=== PATIENT | female | born 1980 | race Caucasian/White ===

== ENCOUNTER 2018-07-16 09:13 | Outpatient (REF) | payer MEDICAID, SELFPAY ==
[2018-07-16 14:34] LABS: Abs Immature Grans 0.03 k/cumm (0.0-0.09); Absolute Basophil Count 0.03 k/cumm (0.0-0.2); Absolute Eosinophil Count 0.05 k/cumm (0.0-0.7); Absolute Lymphocyte Count 2.93 k/cumm (1.2-3.4); Absolute Monocyte Count 0.51 k/cumm (0.11-0.7); Absolute Neutrophil Count 7.05 k/cumm (1.2-6.7); Basophils % 0.3; Eosinophils % 0.5; HCT 43.2 % (36.0-46.0); HGB 14.3 g/dL (12.0-15.5); Immature Grans % 0.3; Lithium 0.25 mmol/L (0.60-1.20); Lymphocytes % 27.6; Mean Corp. HGB Concentration 33.1 g/dL (32.0-36.0); Mean Corpuscular Hemoglobin 29.2 pg (27.0-33.0); Mean Corpuscular Volume 88.2 fL (80-95); Mean Platelet Volume 11.3 fL (8.0-11.0); Monocytes % 4.8; Neutrophils % 66.5; Platelet Count 286 x1000/uL (130-400); RBC Distribution Width 12.7 % (11.7-14.6)
[2018-07-16 14:44] LABS: ALT 30 U/L (12-78); AST 15 U/L (15-37); Albumin 3.9 g/dL (3.4-5.0); Alkaline Phosphatase 59 U/L (46-116); Anion Gap 11.1 mmol/L (3-11); BUN 17 mg/dL (7-18); Bilirubin, Total 0.3 mg/dL (0.2-1.0); CO2 26.9 mmol/L (21.0-32.0); CREATININE 0.92 mg/dL (0.55-1.02); Calcium 9.7 mg/dL (8.5-10.1); Chloride 103 mmol/L (98-107); Glucose 87 mg/dL (70-100); Potassium 4.7 mmol/L (3.5-5.1); Sodium 141 mmol/L (136-145)
== END 2018-07-16 09:33 ==
LOC: NCHCN 09:13
PROVIDERS: Visit Provider Nurse Practitioner
DX: Z51.81 Encounter for therapeutic drug level monitoring (principal); Z79.899 Other long term (current) drug therapy; F31.81 Bipolar II disorder
CPT/HCPCS: 80053; 80178; 85025

== ENCOUNTER 2019-01-28 09:45 | Outpatient (REF) | payer MEDICAID, SELFPAY ==
[2019-01-28 14:33] LABS: Lithium < 0.20 mmol/L (0.60-1.20)
== END 2019-01-28 10:05 ==
LOC: NCHCN 09:45
PROVIDERS: PCP Nurse Practitioner Family; Visit Provider Nurse Practitioner Family
DX: F31.81 Bipolar II disorder (principal); Z51.81 Encounter for therapeutic drug level monitoring
CPT/HCPCS: 80178

== ENCOUNTER 2021-03-23 09:24 | Outpatient (REF) | payer MEDICAID, SELFPAY ==
[2021-03-23 14:57] LABS: Iron 76 ug/dL (50-170); Total Iron Binding Capacity 363 ug/dL (250-450); Transferrin Sat 21 % (15-50)
[2021-03-23 15:09] LABS: ALT 31 U/L (14-59); AST 18 U/L (15-37); Anion Gap 12.2 mmol/L (3-11); BUN 13 mg/dL (7-18); CO2 22.8 mmol/L (21.0-32.0); CREATININE 1.1 mg/dL (0.55-1.02); Calcium 8.9 mg/dL (8.5-10.1); Calculated LDL 137 mg/dL (<100); Chloride 107 mmol/L (98-107); Cholesterol 230 mg/dL (<200); Estimated GFR 54.74 (mL/min/1.73m2); Glucose 88 mg/dL (74-106); HDL Cholesterol 50 mg/dL (40-60); Potassium 4.4 mmol/L (3.5-5.1); Sodium 142 mmol/L (136-145); Triglyceride 219 mg/dL (<150)
== END 2021-03-23 09:25 | disposition home or self-care (01) ==
LOC: NCHCN 09:24
PROVIDERS: PCP Nurse Practitioner Family; Visit Provider Nurse Practitioner Family
DX: E78.5 Hyperlipidemia, unspecified (principal); G43.709 Chronic migraine without aura, not intractable, without status migrainosus; Z79.899 Other long term (current) drug therapy; R79.89 Other specified abnormal findings of blood chemistry
CPT/HCPCS: 80048; 80061; 83540; 83550; 84450; 84460

== ENCOUNTER 2022-11-10 13:05 | Outpatient (REF) | payer MEDICAID, SELFPAY ==
[2022-11-10 14:50] LABS: HCT 37.7 % (36.0-46.0); MCH 27.2 pg (27.0-33.0); MCHC 31.8 % (32.0-36.0); MCV 86 fL (80-95); Platelet Count 337 10^3/uL (130-400); RBC 4.41 10^6/uL (3.93-5.22); RDW 12.9 % (11.7-14.6); RDW-SD 39.8 fL; WBC 10.84 10^3/uL (4.4-10.8)
[2022-11-10 15:05] LABS: ALT 35 U/L (14-59); AST 24 U/L (15-37); Albumin 3.6 g/dL (3.4-5.0); Alkaline Phosphatase 70 U/L (46-116); Anion Gap 11.7 mmol/L (3-11); BUN 13 mg/dL (7-18); Bilirubin, Total 0.2 mg/dL (0.2-1.0); CO2 23.3 mmol/L (21.0-32.0); Calcium 9.4 mg/dL (8.5-10.1); Calculated LDL 154 mg/dL (<100); Chloride 104 mmol/L (98-107); Cholesterol 246 mg/dL (<200); Estimated GFR 72.13 (mL/min/1.73m2); Glucose 93 mg/dL (74-106); HDL Cholesterol 51 mg/dL (40-60); Potassium 4.1 mmol/L (3.5-5.1); Sodium 139 mmol/L (136-145); Total Protein 7.3 g/dL (6.4-8.2); Triglyceride 205 mg/dL (<150)
== END 2022-11-10 13:06 | disposition home or self-care (01) ==
LOC: NCHCN 13:05
PROVIDERS: PCP Nurse Practitioner Family; Visit Provider Nurse Practitioner Family
DX: Z51.81 Encounter for therapeutic drug level monitoring (principal)
CPT/HCPCS: 80053; 80061; 85027

== ENCOUNTER 2023-12-20 14:38 | Outpatient (REF) | payer MEDICAID, SELFPAY ==
[2023-12-20 21:15] LABS: HCT 37.7 % (36.0-46.0); MCH 27.4 pg (27.0-33.0); MCHC 31.8 % (32.0-36.0); MCV 86 fL (80-95); MPV 10.6 fL (8.0-11.0); Platelet Count 341 10^3/uL (130-400); RBC 4.38 10^6/uL (3.93-5.22); RDW 13.1 % (11.7-14.6); RDW-SD 40.7 fL
[2023-12-20 21:29] LABS: Hemoglobin A1C 5.6 % (<5.7)
[2023-12-20 21:35] LABS: ALT 28 U/L (14-59); AST 14 U/L (15-37); Albumin 3.6 g/dL (3.4-5.0); Alkaline Phosphatase 83 U/L (46-116); BUN 13 mg/dL (7-18); Bilirubin, Total 0.3 mg/dL (0.2-1.0); Calcium 9.1 mg/dL (8.5-10.1); Calculated LDL 138 mg/dL (<100); Chloride 105 mmol/L (98-107); Cholesterol 219 mg/dL (<200); Estimated GFR 71.69 (mL/min/1.73m2); Glucose 84 mg/dL (74-106); HDL Cholesterol 50 mg/dL (40-60); Potassium 4.4 mmol/L (3.5-5.1); Sodium 142 mmol/L (136-145); TSH 0.97 uIU/Ml (0.36-3.74); Total Protein 7.1 g/dL (6.4-8.2); Triglyceride 156 mg/dL (<150)
== END 2023-12-20 14:39 | disposition home or self-care (01) ==
LOC: NCHCN 14:38
PROVIDERS: PCP Nurse Practitioner Family; Visit Provider Nurse Practitioner Family
DX: Z51.81 Encounter for therapeutic drug level monitoring (principal)
CPT/HCPCS: 80053; 80061; 85027; 83036; 84443

== ENCOUNTER 2024-01-24 13:33 | Outpatient (REF) | payer MEDICAID, SELFPAY ==
[2024-01-25 19:37] LABS: COMMENT (LAB VIEW ONLY) 71.23 mg/dL; Microalb ug/mg Crea 9.3 ug/mg Cr
== END 2024-01-24 13:34 | disposition home or self-care (01) ==
LOC: NCHCN 13:33
PROVIDERS: PCP Nurse Practitioner Family; Visit Provider Nurse Practitioner Family
DX: R60.0 Localized edema (principal)
CPT/HCPCS: 82043; 82570

== ENCOUNTER 2024-07-25 11:53 | Outpatient (REF) | payer MEDICAID, SELFPAY ==
[2024-07-25 15:28] LABS: Vitamin B12 424 pg/mL (193-986)
== END 2024-07-25 11:54 | disposition home or self-care (01) ==
LOC: NCHCN 11:53
PROVIDERS: PCP Nurse Practitioner Family; Visit Provider Nurse Practitioner Family
DX: L08.89 Other specified local infections of the skin and subcutaneous tissue (principal); G62.9 Polyneuropathy, unspecified
CPT/HCPCS: 86812; 82607

== ENCOUNTER 2024-07-30 21:46 | Outpatient (REF) | payer MEDICAID, SELFPAY ==
[2024-08-07 17:53] LABS: HLA-B27 Result Negative
== END 2024-07-30 21:47 | disposition home or self-care (01) ==
LOC: NCHCN 21:46
PROVIDERS: PCP Nurse Practitioner Family; Visit Provider Nurse Practitioner Family
DX: L08.89 Other specified local infections of the skin and subcutaneous tissue (principal)
CPT/HCPCS: 86812

== ENCOUNTER 2024-08-05 01:43 | Outpatient (CLI) | payer MEDICAID, SELFPAY ==
--- NOTE | 2024-08-05 | DI.MRI_ITS ---
Exam(s) MR BRAIN WO EXAM: MR BRAIN WO CLINICAL HISTORY: Migraine, unspecified, not intractable, wo status migrainosus, G43.909 TECHNIQUE: Multiplanar multisequence MRI of the brain was performed. COMPARISON: No exams were available for comparison FINDINGS: VENTRICLES AND EXTRA AXIAL SPACES: Normal in size and morphology for the patient's age. MIDLINE SHIFT: None. CEREBRAL PARENCHYMA: No focus of restricted diffusion to suggest acute infarct. No space-occupying le cece identified. HEMORRHAGE: None. BRAINSTEM/CEREBELLUM: Normal. CALVARIUM: Normal. VISUALIZED PARANASAL SINUSES/MASTOIDS:Clear. HOH OF CUBA: Normal flow void. PITUITARY GLAND: There is a partially empty sella. OTHER FINDINGS: None. IMPRESSION: Unremarkable MRI of the brain. DATA REPOSITORY:
== END 2024-08-05 02:03 ==
LOC: DI 01:43
PROVIDERS: PCP Nurse Practitioner Family; Visit Provider Nurse Practitioner Family
DX: G43.909 Migraine, unspecified, not intractable, without status migrainosus (principal)
CPT/HCPCS: 70551

== ENCOUNTER 2024-11-21 01:20 | Outpatient (CLI) | payer MEDICAID, SELFPAY | END 2024-11-21 01:21 | disposition home or self-care (01) | PROVIDERS: PCP Nurse Practitioner Family; Visit Provider Nurse Practitioner Family | DX: R53.83 Other fatigue (principal) | CPT/HCPCS: 36415; 82533 ==

== ENCOUNTER 2025-01-09 15:22 | Outpatient (REF) | payer MEDICAID, SELFPAY ==
[2025-01-09 15:48] LABS: HCT 39.2 % (36.0-46.0); HGB 12.3 g/dL (11.2-15.7); MCH 25.8 pg (27.0-33.0); MCHC 31.4 % (32.0-36.0); MCV 82 fL (80-95); MPV 10.9 fL (8.0-11.0); Platelet Count 329 10^3/uL (130-400); RBC 4.77 10^6/uL (3.93-5.22); RDW 13.7 % (11.7-14.6); RDW-SD 40.8 fL; WBC 8.26 10^3/uL (4.4-10.8)
[2025-01-09 16:27] LABS: Iron 46 ug/dL (50-170); Total Iron Binding Capacity 347 ug/dL (250-450); Transferrin Sat 13 % (15-50)
[2025-01-09 16:40] LABS: ALT 42 U/L (14-59); AST 20 U/L (15-37); Albumin 3.8 g/dL (3.4-5.0); Alkaline Phosphatase 124 U/L (46-116); Anion Gap 10.5 mmol/L (3-11); BUN 15 mg/dL (7-18); Bilirubin, Total 0.3 mg/dL (0.2-1.0); CO2 26.5 mmol/L (21.0-32.0); Calculated LDL 172 mg/dL (<100); Chloride 107 mmol/L (98-107); Cholesterol 251 mg/dL (<200); Estimated GFR 71.24 (mL/min/1.73m2); Ferritin 30 ng/mL (8-252); Glucose 98 mg/dL (74-106); HDL Cholesterol 56 mg/dL (>or=50); Potassium 4.3 mmol/L (3.5-5.1); Sodium 144 mmol/L (136-145); TSH (W/Ref FT4) 1.63 uIU/mL (0.36-3.74); Total Protein 7.1 g/dL (6.4-8.2); Triglyceride 116 mg/dL (<150)
== END 2025-01-09 15:23 | disposition home or self-care (01) ==
LOC: NCHCN 15:22
PROVIDERS: PCP Nurse Practitioner Family; Visit Provider Nurse Practitioner Family
DX: R53.83 Other fatigue (principal); E78.5 Hyperlipidemia, unspecified
CPT/HCPCS: 80053; 80061; 85027; 82728; 83540; 83550; 84443

== ENCOUNTER 2025-01-13 01:03 | Outpatient (CLI) | payer MEDICAID, SELFPAY ==
--- NOTE | 2025-01-13 | DI.RAD_ITS ---
Exam(s) XR HAND RT COMPLETE XR HAND LT COMPLETE EXAM: XR HAND LT COMPLETE CLINICAL HISTORY: BILAT HAND PAIN,M79.643. TECHNIQUE: 2D digital imaging was performed. Three views of both hands. COMPARISON: CR XR HAND RT COMPLETE from 01/13/2025 FINDINGS: BONES: No acute fracture is present. No bony destructive lesion is seen. JOINTS: No dislocation present. There are no significant degenerative changes. SOFT TISSUE: Normal. IMPRESSION: Unremarkable radiographs of both hands. DATA REPOSITORY: RADIATION DOSE DELIVERED:
== END 2025-01-13 01:23 ==
LOC: DI 01:04
PROVIDERS: PCP Nurse Practitioner Family; Visit Provider Nurse Practitioner Family
DX: M79.641 Pain in right hand (principal); M79.642 Pain in left hand
CPT/HCPCS: 73130

== ENCOUNTER 2025-02-04 07:14 | Outpatient (CLI) | payer MEDICAID, SELFPAY ==
--- NOTE | 2025-02-04 08:54 | W.CARDEVENT ---
Date of service: 02/04/25 Time of Service: 08:54 Cardiac Event Recorder Referring Provider:: Estefania Ignacio Indications:: Palpitations Cardiac Event Note: This is a cardiac event monitor. Patient was monitored for 13 days and 6 hours. Predominant rhythm was sinus with an average heart rate of 99. Minimum was 68, maximum 133. There was 1 premature ventricular contraction. A total of 91 premature atrial contractions were recorded. There was no atrial fibrillation, no high-grade AV block, no pauses greater than 3 seconds. Patient's symptoms correlated to sinus tachycardia rates between 105 and 120
== END 2025-02-04 07:15 | disposition home or self-care (01) ==
LOC: CARDOPNVT 07:14
PROVIDERS: PCP Nurse Practitioner Family; Visit Provider Internal Medicine Cardiovascular Disease
DX: I49.1 Atrial premature depolarization
CPT/HCPCS: 93248

== ENCOUNTER 2025-02-25 01:41 | Outpatient (CLI) | payer MEDICAID, SELFPAY ==
--- NOTE | 2025-02-25 11:09 | DI.RAD_ITS ---
Exam(s) XR KNEE LT 3V AP,LAT,CONNER EXAM: XR KNEE LT 3V AP,LAT,CONNER CLINICAL HISTORY: LT KNEE PAIN, ? FRACTURE/CANCER/ASSESS FOR OA, RECURRENCE. TECHNIQUE: 2D digital imaging was performed. COMPARISON: No exams were available for comparison FINDINGS: 3 views No evidence of fracture. There may be a small joint effusion. No joint space narrowing nor osteophy jeni. No osteochondral defects. Bone density normal. No osseous lesions. There there is to be late ral displacement of the patella. IMPRESSION: There appears to be an element of lateral patellar displacement. No obvious degenerative changes nor osseous lesions in the knee. DATA REPOSITORY: RADIATION DOSE DELIVERED:
--- NOTE | 2025-02-25 11:09 | DI.RAD_ITS ---
Exam(s) XR KNEE RT 3V AP,LAT,CONNER EXAM: XR KNEE RT 3V AP,LAT,CONNER CLINICAL HISTORY: RT KNEE PAIN, ? FRACTURE/CANCER/ASSESS, RECURRENCE. TECHNIQUE: 2D digital imaging was performed. COMPARISON: CR XR KNEE LT 3V AP,LAT,CONNER from 02/25/2025 FINDINGS: 3 views No evidence of acute fracture. No obvious joint effusion. There is mild-moderate narrowing of the m edial compartment. Lateral compartment appears unremarkable. No patellar displacement. Bone densit y normal. No significant osseous lesions. IMPRESSION: There is some degenerative narrowing of the medial compartment of the right knee. DATA REPOSITORY: RADIATION DOSE DELIVERED:
== END 2025-02-25 02:01 ==
LOC: DI 01:41
PROVIDERS: PCP Nurse Practitioner Family; Visit Provider Internal Medicine Rheumatology
DX: M17.11 Unilateral primary osteoarthritis, right knee (principal)
CPT/HCPCS: 73562

== ENCOUNTER 2025-02-26 14:35 | Outpatient (REF) | payer MEDICAID, SELFPAY ==
[2025-02-26 15:30] LABS: Vitamin D 25 Total 25 ng/mL (30-100)
[2025-02-27 11:39] LABS: IgA 67 mg/dL (85-499); Interpretation (See Note); Tissue Transglutaminase IgA <4.0 CU (<20.0)
== END 2025-02-26 14:36 | disposition home or self-care (01) ==
LOC: NCHCN 14:35
PROVIDERS: PCP Nurse Practitioner Family; Visit Provider Nurse Practitioner Family
DX: E61.1 Iron deficiency (principal); E55.9 Vitamin D deficiency, unspecified
CPT/HCPCS: 82306; 82784; 83516

== ENCOUNTER 2025-07-10 14:39 | Outpatient (REF) | payer MEDICAID, SELFPAY ==
[2025-07-10 15:30] LABS: HCT 39.0 % (36.0-46.0); HGB 12.4 g/dL (11.2-15.7); MCH 26.7 pg (27.0-33.0); MCHC 31.8 % (32.0-36.0); MCV 84 fL (80-95); MPV 11.3 fL (8.0-11.0); Platelet Count 264 10^3/uL (130-400); RBC 4.64 10^6/uL (3.93-5.22); RDW 13.0 % (11.7-14.6); RDW-SD 39.2 fL; WBC 9.52 10^3/uL (4.4-10.8)
[2025-07-10 16:09] LABS: Alkaline Phosphatase 111 U/L (46-116); Ferritin 44 ng/mL (8-252)
[2025-07-10 17:23] LABS: Iron 43 ug/dL (50-170); Total Iron Binding Capacity 311 ug/dL (250-450)
== END 2025-07-10 14:40 | disposition home or self-care (01) ==
LOC: NCHCN 14:39
PROVIDERS: PCP Nurse Practitioner Family; Visit Provider Nurse Practitioner Family
DX: E61.1 Iron deficiency (principal); R74.8 Abnormal levels of other serum enzymes
CPT/HCPCS: 85027; 82728; 83540; 83550; 84075

== ENCOUNTER 2025-08-01 06:08 | Day surgery (SDC) | payer MEDICAID, SELFPAY ==
[2025-08-01 06:35] VITALS: BP 151/84; PULSE 117; RESP 20; TEMP 36.7; O2SAT 97
[2025-08-01] MEDS: Lactated Ringers 1,000 ML 80 ML IV (06:57)
--- NOTE | 2025-08-01 07:11 | W.ANESPRE ---
General Info Date of Service Date Performed: 08/01/25 Height: 5 ft 2 in Weight: 110.6 kg Body Mass Index (BMI): 44.6 Surgical Procedure: Operation Date: 08/01/25 07:35 Proposed Procedure Side Surgeon p Jarrod Segundo MD Meds Allergies and Home Medications Allergies Allergy/AdvReac Type Severity Reaction Status Date / Time oxcarbazepine (From Allergy Unknown Skin Rash Verified 08/01/25 06:19 Trileptal) Home Medication Medication Instructions Recorded azelastine 137 mcg (0.1 %) nasal 2 spray intranasal BID 07/18/25 spray ciclesonide 50 mcg nasal spray 2 spray intranasal DAILY 07/18/25 (Omnaris) clonidine HCl 0.1 mg tablet 0.2 mg PO DAILY 07/18/25 cyclobenzaprine 5 mg tablet 5 mg PO QHS PRN 07/18/25 eszopiclone 1 mg tablet 1 mg PO ONCE 07/18/25 ferrous sulfate 325 mg (65 mg 325 mg PO DAILY 07/18/25 iron) tablet (FeroSul) fexofenadine 60 mg tablet (Zenaida 60 mg PO BID 07/18/25 Allergy) lorazepam 0.5 mg tablet 0.5 mg PO DAILY 07/18/25 montelukast 10 mg tablet 10 mg PO DAILY 07/18/25 ondansetron HCl 8 mg tablet 8 mg PO Q8H 07/18/25 sumatriptan succinate 100 mg tablet See Rx Instructions PO .COMPLEX 07/18/25 triamcinolone acetonide 0.1 % 1 applic topical BID 07/18/25 topical cream acetaminophen 500 mg tablet 1,000 mg PO BID PRN Pain Relief 07/21/25 bisacodyl 5 mg tablet,delayed 5 mg PO ONCE Colonoscopy Bowel 07/21/25 release Prep #4 tabs cholecalciferol (vitamin D3) 50 50 mcg PO DAILY Vitamin D 07/21/25 mcg (2,000 unit) capsule (Vitamin Deficiency D3) ibuprofen 200 mg capsule 400 mg PO DAILY PRN Pain Relief, 07/21/25 Swollen Legs lamotrigine 100 mg tablet 300 mg PO QHS 07/21/25 lemon balm 500 mg capsule 1 cap PO DAILY Anxiety 07/21/25 levocetirizine 5 mg tablet 5 mg PO DAILY Allergies 07/21/25 melatonin 10 mg capsule 10 mg PO DAILY Insomnia 07/21/25 multivitamin 1 tab PO DAILY 07/21/25 polyethylene glycol 3350 17 238 g PO ONCE #238 grams 07/21/25 gram/dose oral powder Current Visit Medications: Current Medications Generic Name Dose Route Start Last Admin Trade Name Freq PRN Reason Stop Dose Admin Ringer's Solution 1,000 mls @ 80 mls/hr 08/01/25 06:00 08/01/25 06:57 IV 08/01/25 23:59 80 mls/hr INFUSION MEGHA Administration IV Miscellaneous Supplies 1 each 08/01/25 06:00 Iv Access IV 08/01/25 23:59 DIRECTED MEGHA Sodium Chloride 0 ml 08/01/25 06:00 Normal Saline Flush 10 Ml Syr IV 08/01/25 23:59 PRN PRN Sodium Chloride 0 ml 08/01/25 06:00 Normal Saline 10 Ml Vial IJ 08/01/25 23:59 DIRECTED PRN Sterile Water 0 ml 08/01/25 06:00 Water,Injection,Sterile 10 Ml Vial IJ 08/01/25 23:59 DIRECTED PRN PFSH Active Problems Active Problems: Problem Status Onset Code Bipolar 2 disorder Acute F31.81 Lactose intolerance Acute E73.9 Hyperlipidemia Acute E78.5 Neuropathy Acute G62.9 Obesity Chronic E66.9 RANI (generalized anxiety disorder) Acute F41.1 Insomnia Acute G47.00 Chronic diarrhea Acute K52.9 Iron deficiency Acute E61.1 Hand pain Acute M79.643 Fatigue Acute R53.83 Vitamin D deficiency Acute E55.9 Medical History Medical History Migraine Seasonal allergic rhinitis Pain in left foot Paresthesia of hand Low back pain Amenorrhea Edema of lower extremity Dysfunction of both eustachian tubes Dry skin dermatitis Palpitations Pt. stated this was r/t to anemia Surgical History Surgical History History of dental surgery (~2009) wisdom and other teeth removed Hx of cholecystectomy Tobacco Smoking/Tobacco Use Status: Never Passive smoking exposure: Yes Alcohol Alcohol Intake: current Alcohol intake frequency: a few times a month Substance Use Substance use: Never Substance use type: does not use Vital Signs and Lab Results Vital Signs Most Recent Vital Signs in EMR: Most Recent Vital Signs Temp Pulse Resp BP Pulse Ox 36.7 C 117 H 20 151/84 H 97 08/01/25 06:35 08/01/25 06:35 08/01/25 06:35 08/01/25 06:35 08/01/25 06:35 Point of Care Results Point of Care Results: POC- Test(urine) Negative 08/01/25 06:38 Lab Results Complete Blood Count: WBC, (4.4-10.8) 9.52 10^3/uL 07/10/25, 11:20 RBC, (3.93-5.22) 4.64 10^6/uL 07/10/25, 11:20 Hgb, (11.2-15.7) 12.4 g/dL 07/10/25, 11:20 Hct, (36.0-46.0) 39.0 % 07/10/25, 11:20 Plt Count, (130-400) 264 10^3/uL 07/10/25, 11:20 Anesthesia Assessment and Plan Anesthesia History Personal History: PONV Family History: No Family History of Anesthesia Complications Exercise Tolerance Exercise Tolerance: Metabolic Equivalents<4 Pertinent Negatives Pertinent Negatives: No Symptoms of GERD, No Major Cardiovascular Symptoms or Complaints and No Major Pulmonary Symptoms or Complaints Cardiac & Pulmonary Exam Cardiac Exam: Normal S1/S2 Heart Sounds Pulmonary Exam: Clear Bilateral Breath Sounds Implantable Cardiac Device Does patient have a Pacemaker or an ICD?: No Airway Exam Known Difficult Airway: No Mallampati Class: 3 Mouth Opening: Normal (> 3cm) Thyromental Distance: Greater than 3 cm Neck Range of Motion: Full ROM Neck Circumference: Thick Teeth Condition: Normal Dentition and Loose or Chipped (broken molar left upper and right lower, none fragile) ASA Classification ASA Score: ASA 3 Emergency Case?: No NPO Status NPO Status: NPO Clears >2 hours, Solids >8 hours Status Status: Negative HCG Anesthesia Plan Resuscitation Status: Full Code Anesthesia Technique: General Anesthesia Airway Planned: Natural Airway Monitors Used: Standard Monitors
[2025-08-01 07:13] VITALS: BMI 44.6
--- NOTE | 2025-08-01 07:44 | BOWEL_PTH ---
PATIENT: Page Rosen LOC: [facility] U#:[id number] AGE/SX: 45/F ROOM: RE08/01/[address]: Nhi Segundo : 1980 BED: DIS: 08/01/2025 SPEC #: [id number] RECD: 08/01/25 12:40 STATUS: JEREMIAH RE #: [id number] RODRIGO: 08/01/25 07:[address]: Nhi Segundo DEPT: Surgical Specimen RECD BY: Swati Frazier ENTERED: 08/01/25 12:41 SP TYPE: Bowel OTHR DR: Estefania Ignacio Tissues: 1 - BIOPSY BOWEL 2 - BIOPSY BOWEL 3 - BIOPSY BOWEL Procedures: GROSS AND MICRO LEVEL 4 Comments: [id number]
--- NOTE | 2025-08-01 07:55 | W.PM.DSUDISC ---
Date of service: 08/01/25 Discharge Plan Disposition Patient Disposition: Home Condition: Good Discharge Details Reason For Visit: Chronic diarrhea Attending Provider: Nhi Segundo Primary Care Provider: Estefania Ignacio Recommendations for Follow Up Recommended tests to be ordered by follow up provider: Follow up biopsy Home Meds and New Rx's Prescriptions: Continued clonidine HCl 0.1 mg tablet 0.2 mg PO DAILY fexofenadine [Zenaida Allergy] 60 mg tablet 60 mg PO BID sumatriptan succinate 100 mg tablet See Rx Instructions PO .COMPLEX Rx Instructions: take 1 tab at onset of headache; if no relief, may repeat 1 tab after at least 2 hrs; max = 2 tabs/24 hrs PO ondansetron HCl 8 mg tablet 8 mg PO Q8H triamcinolone acetonide 0.1 % cream 1 applic topical BID lorazepam 0.5 mg tablet 0.5 mg PO DAILY montelukast 10 mg tablet 10 mg PO DAILY azelastine 137 mcg (0.1 %) spray,non-aerosol 2 spray intranasal BID Rx Instructions: administer into each nostril cyclobenzaprine 5 mg tablet 5 mg PO QHS PRN eszopiclone 1 mg tablet 1 mg PO ONCE Omnaris 50 mcg spray,non-aerosol 2 spray intranasal DAILY Rx Instructions: into each nostril lamotrigine 100 mg tablet 300 mg PO QHS multivitamin Tablet 1 tab PO DAILY ibuprofen 200 mg capsule 400 mg PO DAILY PRN (Reason: Pain Relief, Swollen Legs) acetaminophen 500 mg tablet 1,000 mg PO BID PRN (Reason: Pain Relief) levocetirizine 5 mg tablet 5 mg PO DAILY cholecalciferol (vitamin D3) [Vitamin D3] 50 mcg (2,000 unit) capsule 50 mcg PO DAILY melatonin 10 mg capsule 10 mg PO DAILY lemon balm 500 mg capsule 1 cap PO DAILY Discontinued bisacodyl 5 mg tablet,delayed release (DR/EC) 5 mg PO ONCE Qty: 4 0RF Rx Instructions: Per Colonoscopy bowel prep instructions polyethylene glycol 3350 17 gram/dose powder 238 g PO ONCE Qty: 238 0RF Rx Instructions: For Colonoscopy bowel prep, as directed by office No Action ferrous sulfate [FeroSul] 325 mg (65 mg iron) tablet 325 mg PO DAILY Discharge Instructions Additional Instructions: Your colonoscopy went well today. Your entire colon appeared normal. Some small biopsies were taken to send to pathology given your symptoms. We will contact you once these results return. For screening purposes the recommendation would be that you have a repeat colonoscopy in 10 yrs. Please contact the general surgery office if you have further questions or concerns. 1. If tolerated, consume a soft, low fiber diet for 1-2 days. [address] Do not drive, drink alcohol, operate machinery, make critical decisions, or do activities that require coordination or balance for 24 hours. 3. Because air was put into your colon during the procedure, expelling air from your rectum (passing gas or farting) is normal. 4. You may not have a bowel movement for 1-3 days because of the colonoscopy prep. This is normal. 5. Go directly to the emergency room if you notice any of the following: Develop chills (warm to touch), or if you have a thermometer and your temperature is above 101 Difficulty breathing or difficultly swallowing Persistent vomiting Severe abdominal pain, other than gas cramps Severe chest pain Black, tarry stools Any bleeding – exceeding one tablespoon 6. Call your physician if the site where your intravenous was started becomes red, swollen, painful, and warm to touch. 7. Your physician has reviewed your pre-procedure medications. Please continue to take those medications as previously ordered. You will be given specific information/education regarding any changes to your medications before leaving. Stand Alone Forms: Anesthesia Discharge Inst., Wolf Perez ([facility]) Activity:: Activity as Tolerated Diet:: As Tolerated Discharge Orders Discharge Orders: Discharge Order (Routine); Ordered 08/01/25 Ordered By: Nhi Segundo
[2025-08-01 07:56] VITALS: BP 119/82; PULSE 85; RESP 20; TEMP 36.4; O2SAT 99
--- NOTE | 2025-08-01 07:59 | COLE_ITS ---
Date of service: 08/01/25 Time of Service: 07:59 Colonoscopy Report Date of procedure: 08/01/25 Pre-op diagnosis general: Chronic diarrhea Post-op diagnosis procedure note: same Procedure: Colonoscopy with biopsy Surgeon: Nhi Segundo Anesthesia Type: General:No Airway Estimated blood loss (mL): 1 Pathology: other (Colon biopsy of ascending colon, transverse colon and descending colon) Complications: None Disposition: PACU Indications: Patient is a 45 yo female who was evaluated in the general surgery clinic given ongoing diarrhea. She also is due for a screening colonoscopy. Prep: Miralax/Dulcolax Procedure Start Time: 07:32 Procedure End Time: 07:51 Retraction Time: 11 Findings: Normal colonoscopy. Cold forcep biopsy performed of ascending, transverse, and descending colon. Procedure Description: Informed consent was obtained. The patient was taken to the endoscopy suite and placed in the left lateral decubitus position. After adequate intravenous sedation, digital rectal exam was performed, which was normal. A colonoscope was inserted into the rectum and easily negotiated to the cecum. The ileocecal valve and appendiceal orifice were identified. The entire colonic mucosa was then carefully circumferentially inspected upon slow withdrawal of the scope. The entire colon appeared normal. Cold forcep biopsies of the ascending, transverse and descending colon were performed and sent to pathology. Retroflexion in the rectum was unremarkable. The patient tolerated the procedure well with no complications. Postoperatively, the patient was transferred to the recovery room in stable condition. [facility] Bowel Prep [facility] Bowel Prep Right Colon: 3 Left Colon: 3 Transverse Colon: 3 Total Score: 9
[2025-08-01 08:14] VITALS: BP 149/75; PULSE 86; RESP 20; TEMP 36.6; O2SAT 100
--- NOTE | 2025-08-01 08:22 | W.ANESPOSTOP ---
Postoperative Evaluation Date, Time and Location Date Performed: 08/01/25 Time Performed: 07:56 Patient Location: Day Surgery Unit Vital Signs Most Recent Imported Vital Signs: Most Recent Vital Signs Temp Pulse Resp BP Pulse Ox 36.4 C L 85 20 119/82 99 08/01/25 07:56 08/01/25 07:56 08/01/25 07:56 08/01/25 07:56 08/01/25 07:56 Pain Score Most Recent Pain Score: Most Recent Pain Score Pain Level 0 08/01/25 07:56 Assessment Mental Status: Awake (Alert & Oriented to Patient Baseline) Airway and Respiratory Function: Patent airway with normal (patient baseline) respiratory exam Cardiovascular Function: Hemodynamically Stable Hydration Status: Adequately Hydrated Nausea & Vomiting: No Nausea or Vomiting Pain: Pt. Denies Any Pain Peripheral Nerve Block: Patient did not receive a nerve block
== END 2025-08-01 08:34 | disposition home or self-care (01) ==
PROVIDERS: PCP Nurse Practitioner Family; Visit Provider Student in an Organized Health Care Education/Training Program
PROC: 0DJD8ZZ Inspection of Lower Intestinal Tract, Via Natural or Artificial Opening Endoscopic (ICD-10-PCS; CPT 45378; principal; 2025-08-01 07:30)
DX: K52.9 Noninfective gastroenteritis and colitis, unspecified (principal); Z12.11 Encounter for screening for malignant neoplasm of colon
CPT/HCPCS: 45380; 88305; J1885; J2003; J2405; J2704